=== PATIENT | male | born 2000 | race Hispanic/Latino ===

== ENCOUNTER 2023-01-29 12:09 | Emergency (ER) | payer BC ==
[~2023-01-29] VITALS: Ht 177.8 cm; Wt 122.5 kg
[2023-01-29] MEDS ORDERED: AMOX-427 PO (14:48)
[2023-01-29] MEDS ORDERED: ONDA22I SL (14:50)
[2023-01-29 15:38] VITALS: BP 148/72; PULSE 78; RESP 18; O2SAT 98
== END 2023-01-29 15:45 | disposition home or self-care (01) ==
LOC: EDH 12:09
DX: R13.10 Dysphagia, unspecified (principal); Z60.2 Problems related to living alone
CPT/HCPCS: 71045